=== PATIENT | male | born 1930 | race Caucasian/White ===

== ENCOUNTER 2016-09-21 16:56 | Emergency (ER) | payer MEDICARE, OTHER ==
[~2016-09-21] VITALS: Ht 165.1 cm; Wt 100.0 kg
[~2016-09-21 16:56] MED LIST: ADV25050 INHALATION; CHOL2000 PO; DICL100G37 TOP; DUTA0.5C PO; ESCI5SOL2 PO; ESOM40CA PO; ISOS10TA2 PO; NITR4.1S2 TL; OLOP2.5D BOTH EYES; OSLT75C PO; RANO10002 PO; RIVA15TA PO; SACU1TAB7 PO; SILO8CAP PO; SIMV-39 PO; TOLT4CAP PO
[2016-09-21 17:25] VITALS: Ht 165.1 cm; Wt 100.0 kg
[2016-09-21 17:50] LABS: ADD SCAN DIFF NO
[2016-09-21 17:51] LABS: BASOPHILS % 0.3 % (0.0-2.0); EOSINOPHILS # 0.4 10^3/ul (0.0-0.5); EOSINOPHILS % 5.7 % (0.0-7.0); HEMATOCRIT 38.6 % (42.0-52.0); HEMOGLOBIN 13.3 g/dl (14.0-18.0); LYMPHOCYTES # 1.5 10^3/ul (0.8-2.9); LYMPHOCYTES % 21.9 % (15.0-51.0); MEAN CORPUSCULAR HEMOGLOBIN 32.4 pg (29.0-33.0); MEAN CORPUSCULAR HGB CONC 34.5 g/dl (32.0-37.0); MEAN CORPUSCULAR VOLUME 94.1 fl (82.0-101.0); MEAN PLATELET VOLUME 11.4 fl (7.4-10.4); MONOCYTE # 0.6 10^3/ul (0.3-0.9); MONOCYTES % 8.6 % (0.0-11.0); NEUTROPHIL # 4.4 10^3/ul (1.6-7.5); NEUTROPHILS % 63.4 % (39.0-77.0); PLATELET COUNT 151 10^3/UL (140-415); RED CELL DISTRIBUTION WIDTH 13.5 % (11.5-14.5); WHITE BLOOD COUNT 6.9 10^3/ul (4.8-10.8)
[2016-09-21] MEDS ORDERED: FENO134C PO (17:54)
[2016-09-21] MEDS ORDERED: TELM40TA3 PO (17:55)
[2016-09-21] MEDS ORDERED: MECL-77 PO (17:55)
[2016-09-21] MEDS ORDERED: TAMS0.4C2 PO (17:56)
[2016-09-21] MEDS ORDERED: CYAN500T46 PO (17:57)
[2016-09-21] MEDS ORDERED: DICL100G37 TOP (17:58)
[2016-09-21 18:03] LABS: ALBUMIN 3.7 g/dl (3.3-4.9); CHLORIDE 104 mmol/L (97-110)
[2016-09-21 18:05] LABS: INR 1.22; POTASSIUM 4.6 mmol/L (3.5-5.1); PROTIME 15.5 Sec (12.2-14.2); PT RATIO 1.2; SODIUM 143 mmol/L (135-144)
[2016-09-21 18:06] LABS: ALANINE AMINOTRANSFERASE 21 IU/L (13-69); ALBUMIN/GLOBULIN RATIO 1.48; ALKALINE PHOSPHATASE 79 IU/L (42-121); ANION GAP 16 (8-16); ASPARTATE AMINO TRANSFERASE 23 IU/L (15-46); BILIRUBIN,INDIRECT 0.1 mg/dl (0-1.1); BILIRUBIN,TOTAL 0.1 mg/dl (0.2-1.3); BLOOD UREA NITROGEN 28 mg/dl (7-20); CARBON DIOXIDE 28 mmol/L (21-31); CREATININE 1.49 mg/dl (0.61-1.24); TOTAL PROTEIN 6.2 g/dl (6.1-8.1)
[2016-09-21 18:07] LABS: GLUCOSE 135 mg/dl (70-220)
--- NOTE | 2016-09-21 18:08 | RADRPT ---
PROCEDURE: XR Chest. CLINICAL INDICATION: Seizure. Shortness of breath. TECHNIQUE: Single frontal view. COMPARISON: 03/12/2016. FINDINGS: Mild atelectasis is present at the lung bases. The lungs are otherwise clear. The heart is enlarged. There is calcification in the aorta consistent with atherosclerosis. There is a [facility] LINQ cardiac loop recorder overlying the left side of the chest. There is no pleural effusion. There is no pneumothorax. IMPRESSION: 1. Mild atelectasis at the lung bases. 2. Cardiomegaly and atherosclerosis. 3. Cardiac loop recorder, new when compared with the prior study. RPTAT: QQ .Luis Pisano MD, MD Date Time Electronically viewed and signed by .Luis Pisano MD, on 09/21/2016 18:08 .R/
--- NOTE | 2016-09-21 18:17 | ERA ---
ER Documentation Chief Complaint Date/Time DATE: 09/21/16 TIME: 18:15 Chief Complaint BIB R90N FROM HOME, C/O POSSIBLE SZ WITNESS BY SPOUSE, NO VISIBLE TRAUMA HPI Patient is an 86-year-old who had a shaking episode and then fell out of his chair. Initially he was confused and did not recognize his son or his spouse. It is unclear how long this shaking episode lasted. He did not become apneic nor did he lose his pulse. He did not have any complaints prior to the episode. Currently he is at his neurological baseline per his son. He now recognizes his son. He apparently has had 2 other episodes which were labeled as seizures but is not currently taking any antiseizure medication. He denies any chest pain, shortness of breath, headache, nausea, vomiting, focal weakness or paresthesias. He did not have any head trauma, or extremity trauma. Currently his only complaint is some low back pain. He has not been recently ill with any fever, coughing, congestion, rhinorrhea, sore throat, otalgia, abdominal pain, nausea, vomiting, or diarrhea. In the remainder of the systems are negative. ROS All systems reviewed and are negative except as per history of present illness. Medications Home Meds Reported Medications Diclofenac Sodium* (Voltaren* Gel) 1% -100 Gm Gel, 2 GM TOP QID, #1 TUB 09/21/16 Cyanocobalamin* (Vitamin B12*) 500 Mcg Tab, 1000 MCG PO DAILY, TAB 09/21/16 Tamsulosin Hcl* (Tamsulosin Hcl*) 0.4 Mg Cap.er.24h, 0.4 MG PO DAILY, CAP 09/21/16 Telmisartan (Telmisartan) 40 Mg Tablet, 40 MG PO DAILY, TAB 09/21/16 Meclizine Hcl* (Meclizine Hcl*) 25 Mg Tablet, 25 MG PO Q8H Y for DIZZINESS, TAB 09/21/16 Fenofibrate, Micronized (Fenofibrate) 134 Mg Capsule, 134 MG PO DAILY, CAP 09/21/16 Nitroglycerin* (Nitrolingual* [place]) 400 mcg/spray - 4.[address] [place], 1 SPRAY TL Q5MIN Y for CHEST PAIN, SPRAY 03/09/16 Dutasteride* (Avodart*) 0.5 Mg Capsule, 0.5 MG PO DAILY, CAP 09/17/15 Esomeprazole Mag Trihydrate (Nexium) 40 Mg Capsule.dr, 40 MG PO DAILY, #30 CAP 09/17/15 Rivaroxaban* (Xarelto*) 15 Mg Tablet, 15 MG PO BID, TAB 09/17/15 Ranolazine* (Ranexa*) 1,000 Mg Tab.sr.12h, 1000 MG PO Q12, TAB 09/17/15 Salmeterol Xinaf/Fluticasone* (Advair*) 250-50 Diskus Inhaler, 1 INH INHALATION BID, #1 INHALER 09/17/15 Simvastatin* (Simvastatin*) 80 Mg Tablet, 80 MG PO QHS, #30 TAB 09/17/15 Escitalopram Oxalate* (Escitalopram Oxalate*) 5 Mg/5 Ml Solution, 5 MG PO DAILY , ML 09/17/15 Discontinued Reported Medications Sacubitril/Valsartan (Entresto 49 mg-51 mg Tablet) 1 Each Tablet, 1 EACH PO BID , TAB 03/09/16 Isosorbide Dinitrate* (Isosorbide Dinitrate*) 10 Mg Tablet, 10 MG PO BID, TAB 03/09/16 Olopatadine* (Pataday*) 0.2% - 2.5 Ml Drops, 1 DROP BOTH EYES DAILY, EA 03/09/16 Cholecalciferol* (Vitamin D3*) 2,000 Unit Cap, 2000 UNIT PO DAILY, CAP 03/09/16 Silodosin (Rapaflo) 8 Mg Capsule, 8 MG PO HS, CAP 09/17/15 Diclofenac Sodium* (Voltaren* Gel) 1% -100 Gm Gel, 2 GM TOP TID, #1 TUB 09/17/15 Tolterodine Tartrate* (Detrol LA*) 4 Mg Cap.sr.24h, 4 MG PO DAILY, #30 CAP 09/17/15 Discontinued Scripts Oseltamivir Phosphate* (Tamiflu*) 75 Mg Capsule, 75 MG PO BID for 5 Days, CAP Prov:KRISTINA ESCOBEDO PORTABLE SAWYER 03/12/16 Allergies Allergies: Coded Allergies: No Known Drug Allergies (Verified Allergy, Unknown, 09/21/16) PMhx/Soc History of Surgery: Yes (heart stent) Anesthesia Reaction: No Hx Neurological Disorder: No (SEIZURE, VERTIGO) Hx Respiratory Disorders: No Hx Cardiac Disorders: Yes ([place] 2006, HIGH CHOLESTEROL) Hx Psychiatric Problems: Yes (ANXIETY) Hx Miscellaneous Medical Probl: Yes (BLOOD THINNER) Hx Alcohol Use: No Hx Substance Use: No Hx Tobacco Use: No Smoking Status: Former smoker FmHx Family History: coronary disease, diabetes Physical Exam Vitals Vital Signs Date Time Temp Pulse Resp B/P Pulse Ox O2 Delivery O2 Flow Rate FiO2 09/21/16 17:25 98.6 82 26 120/45 96 Physical Exam Const: [] Well-developed well-nourished male sitting in bed in no acute distress Head: Atraumatic normocephalic Eyes: Normal Conjunctiva ENT: Normal External Ears, Nose and Mouth. Neck: Full range of motion..~ No meningismus. Resp: Clear to auscultation bilaterally Cardio: Regular rate and rhythm, no murmurs Abd: Soft, non tender, non distended. Normal bowel sounds Skin: No petechiae or rashes Back: No midline or flank tenderness Ext: No cyanosis, or edema Neur: Awake and alert, oriented 3, GCS of 15, cranial nerves II through XII are intact, moves all extremities equally, grossly nonfocal Psych: Normal Mood and Affect Result Diagram: 09/21/16 1740 09/21/16 1740 Results 24 hrs Laboratory Tests Test 09/21/16 17:40 Activated Partial Thromboplast Time 34.0Sec Alanine Aminotransferase (ALT/SGPT) 21IU/L Albumin 3.7g/dl Albumin/Globulin Ratio 1.48 Alkaline Phosphatase 79IU/L Anion Gap 16 Aspartate Amino Transf (AST/SGOT) 23IU/L Basophils # 0.010^3/ul Basophils % 0.3% Blood Urea Nitrogen 28mg/dl Calcium Level 9.0mg/dl Carbon Dioxide Level 28mmol/L Chloride Level 104mmol/L Creatinine 1.49mg/dl Direct Bilirubin 0.00mg/dl Eosinophils # 0.410^3/ul Eosinophils % 5.7% Globulin 2.50g/dl Glucose Level 135mg/dl Hematocrit 38.6% Hemoglobin 13.3g/dl INR International Normalized Ratio 1.22 Indirect Bilirubin 0.1mg/dl Lymphocytes # 1.510^3/ul Lymphocytes % 21.9% Mean Corpuscular Hemoglobin 32.4pg Mean Corpuscular Hemoglobin Concent 34.5g/dl Mean Corpuscular Volume 94.1fl Mean Platelet Volume 11.4fl Monocytes # 0.610^3/ul Monocytes % 8.6% Neutrophils # 4.410^3/ul Neutrophils % 63.4% Nucleated Red Blood Cells # 0.010^3/ul Nucleated Red Blood Cells % 0.0/100WBC Platelet Count 44180^3/UL Potassium Level 4.6mmol/L Prothrombin Time 15.5Sec Prothrombin Time Ratio 1.2 Red Blood Count 4.1010^6/ul Red Cell Distribution Width 13.5% Sodium Level 143mmol/L Total Bilirubin 0.1mg/dl Total Protein 6.2g/dl Troponin I < 0.010ng/ml White Blood Count 6.910^3/ul Current Medications Medications (Trade) Dose Ordered Sig/Sneha Route PRN Reason Start Time Stop Time Status Last Admin Dose Admin Levetiracetam/ Dextrose (Keppra Iv/D5W) 110 ml @ 440 mls/hr ONCE ONCE IVPB 09/21/16 20:30 09/21/16 20:44 DC 09/21/16 21:04 Acetaminophen/ Hydrocodone Bitart ([place] (5/325)) 2 tab ONCE ONCE PO 09/21/16 21:30 09/21/16 21:31 09/21/16 21:08 Ondansetron HCl (Zofran Odt) 4 mg ONCE STAT ODT 09/21/16 21:01 09/21/16 21:03 DC 09/21/16 21:08 Procedures/MDM Differential includes but is not limited to cardiac arrhythmia, seizure, TIA, CVA, low back strain, fracture, electrolyte disturbance, fall EKG: Rate/Rhythm: Normal Sinus Rhythm at 80 bpm Q waves noted in leads V1 and V2 consistent with an old infarct QRS, ST, T-waves: No changes consistent w/ acute ischemia Impression: No evidence of acute ischemia or arrhythmia, no old EKG available for comparison Chest x-ray did not reveal any acute cardiopulmonary process CT the head did not reveal any acute intracranial abnormalities per the radiologist I spoke with Dr. Peng who agreed to the Keppra IV 1 g. He also stated the patient should be discharged on 500 mg twice daily. The patient is to follow- up with Dr. Moran. Initially the patient complained of thoracic back pain and I ordered spine films on him however when radiology came to pick him up he stated his back was no longer hurting. The spine films were canceled. It appears the patient is stable for discharge home with outpatient follow-up. Departure Diagnosis: Primary Impression: Seizure disorder Additional Impressions: Coronary artery disease Qualified Code: I25.10 - Coronary artery disease involving [place] coronary artery of [place] heart without angina pectoris Hypertension Qualified Code: I10 - Essential hypertension Hyperlipidemia Qualified Code: E78.2 - Mixed hyperlipidemia Condition: Good Patient Instructions: Seizure, Recurrent [Adult] Additional Instructions: Please take the Keppra in addition to the Depakote. Call Dr. Moran first thing Saturday to schedule follow-up appointment as soon as possible. If the patient has a seizure please make sure he is in a safe environment and allow the seizure to occur.Then call an ambulance to transport to the closest emergency department. Return to the emergency room for any new or worsening symptoms. ANN RIOS Sep 21, 2016 18:17
[2016-09-21 18:22] LABS: TROPONIN-I < 0.010 ng/ml (0.00-0.12)
--- NOTE | 2016-09-21 19:18 | RADRPT ---
PROCEDURE: CT Brain without. CLINICAL INDICATION: Seizure. TECHNIQUE: A CT of the brain was performed on multidetector high-resolution CT scanner utilizing a xial sections from the skull base through the vertex without contrast. The scan was reviewed in sof t tissue brain and high frequency resolution bone algorithm windows. Images were reviewed on a high -resolution PACS workstation. One or more the following does reduction techniques were utilized: Aut omated exposure control, adjustment of the mA/ or kV according to patient's size, or use of iterativ e reconstruction technique. The exam CTDI = 45.03 mGy and the DLP = 751.47 mGy-cm. COMPARISON: None available. FINDINGS: The ventricles and sulci are mildly prominent indicative of volume loss. There is no intracranial he morrhage, mass effect or midline shift. No abnormal intra-axial or extra-axial fluid collections ar e seen. The chester/white matter differentiation is preserved. There are mild scattered foci of hypoattenuation in the white matter, which are nonspecific in etiol ogy but likely reflect chronic small vessel ischemic changes. There are mild intracranial vascular calcifications consistent with atherosclerosis. The visualized paranasal sinuses demonstrate mild to moderate mucosal thickening or pronounced in ethmoid air cells. The mastoid air cells are essentia lly clear. There is thinning of bilateral lens indicative of prior lens replacement.. IMPRESSION: 1. No acute intracranial hemorrhage, transcortical infarction or mass effect. 2. Mild intracranial atherosclerosis and chronic small vessel ischemic changes. 3. Mild generalized cerebral volume loss. 4. Mild to moderate paranasal sinus disease. RPTAT: QQ .Tomasa Mak MD, MD Date Time Electronically viewed and signed by .Tomasa Mak MD, MD on 09/21/2016 19:17 .N/
[2016-09-21] MEDS ORDERED: LEVETIRACETAM IV 1,000 MG in DEXTROSE 5% 100 ML IVPB ONE (20:30)
[2016-09-21] MEDS ORDERED: ONDANSETRON (ODT) 4 MG TAB ODT STA (21:01)
[2016-09-21] MEDS ORDERED: HYDROCODONE/APAP (5/325) TAB PO ONE (21:30)
[2016-09-21] MEDS ORDERED: LEVE-5 PO (21:34)
[2016-09-21 21:35] VITALS: BP 125/76; PULSE 68; RESP 19
== END 2016-09-21 22:00 | disposition home or self-care (01) ==
LOC: E/R 16:56
DX: G40.909 Epilepsy, unspecified, not intractable, without status epilepticus (principal); I25.10 Atherosclerotic heart disease of native coronary artery without angina pectoris; I10 Essential (primary) hypertension; E78.2 Mixed hyperlipidemia; R40.2142 Coma scale, eyes open, spontaneous, at arrival to emergency department; R40.2252 Coma scale, best verbal response, oriented, at arrival to emergency department; R40.2362 Coma scale, best motor response, obeys commands, at arrival to emergency department; R06.02 Shortness of breath; Z98.61 Coronary angioplasty status; Z87.891 Personal history of nicotine dependence
CPT/HCPCS: 36415; 70450; 71010; 80053; 84484; 85025; 85610; 85730; 96374; 99285; J1953; 93005